=== PATIENT | male | born 1960 | race Caucasian/White ===

== ENCOUNTER 2016-11-16 13:20 | Emergency (ER) | payer OTHER ==
--- NOTE | 2016-11-16 14:23 | DIAGNOSTIC IMAGING REPORT ---
PROCEDURE: XR CHEST 2 VIEW INDICATION: SHORTNESS OF BREATH, initial encounter TECHNIQUE: PA and lateral view. COMPARISON: None. FINDINGS: Lungs are clear. Cardiovascular structures are normal. Bony thorax is unremarkable. IMPRESSION: 1. Negative chest.
--- NOTE | 2016-11-16 15:27 | ED ORDER SUMMARY ---
..... Patient: ODESSA SIMMONS OrderSheet [facility] VisitID: [id number] [address] [place] [address] 55y, M Registration Date/Time: 11/16/2016 ORDER SHEET Weight: 65.7 kg (stated) Allergies: None GENERAL ORDERS: UA-Culture if indicated Urgent (13:11/16/2016 PHutchinson DO) (Ack 13:37 LTapper) (15:30 ASchmuck) Amylase Urgent (13:11/16/2016 PHutchinson DO) (Ack 13:37 LTapper) (13:46 ASchmuck) Lipase Urgent (:11/16/2016 PHutchinson DO) (Ack 13:37 LTapper) (13:46 ASchmuck) Cardiac Panel Stat (:11/16/2016 PHutchinson DO) (Ack 13:37 LTapper) (13:46 ASchmuck) NPO (13:11/16/2016 PHutchinson DO) (13:29 ASchmuck) Rapid Influenza Screen (Nasal Pharyngeal) (assembler steam and gas turbine swab) Urgent (13:38 11/16/2016 PHutchinson DO) (Ack 13:44 LTapper) (13:46 ASchmuck) Chest 2V (possible history of mesothelioma) Urgent (14:01 11/16/2016 PHutchinson DO) (Ack 14:04 LTapper) (14:39 ASchmuck) MEDICATION ORDERS: IV FLUIDS: IV NS : initial bolus 1000 mL (1000 mL/hr), then 1000 mL/hr for X2 (NOW) (13:11/16/2016 PHutchinson DO) (Ack 13:33 ASchmuck) (13:46 ASchmuck) Zofran IV 4 mg (NOW) (13:11/16/2016 PHutchinson DO) (Ack 13:33 ASchmuck) (13:47 ASchmuck) Dilaudid IV 1 mg (HIGH ALERT MEDICATION, NOW) (13:11/16/2016 PHutchinson DO) (Ack 13:33 ASchmuck) (13:47 ASchmuck) Protonix IVP 40mg 40 mg (Mix in NS 10ml over 2min) (13:42 11/16/2016 Vahid CALDERA) (Ack 13:47 ASchmuck) (13:52 ASchmuck) Zofran IV 4 mg (NOW) (15:28 11/16/2016 Vahid CALDERA) (Ack 15:30 ASchmuck) (15:34 ASchmuck) ORDER SHEET NOTES: [Electronically signed by Anusha Colindres (15:49 11/16/2016)] [Electronically signed by Sam Pardo DO (23:01 11/16/2016)] [Electronically locked/signed by Anusha Colindres (15:49 11/16/2016)]
--- NOTE | 2016-11-16 15:27 | ED CLINICAL REPORT ---
Clinical Report - Physicians/Mid Levels [facility] [address] [place] [address] 11/16/2016 13:27 Patient: ODESSA SIMMONS Time Seen: 13:22. Arrived- By ambulance. Historian- patient and EMS personnel. HISTORY OF PRESENT ILLNESS Chief Complaint: NAUSEA, VOMITING and ABDOMINAL PAIN. At its maximum, severity described as moderate. When seen in the E.D., severity described as moderate. Modifying factors- worsened by movement and food. Relieved by rest. This started about 1 week ago and is still present. It was gradual in onset and has been waxing/waning. No headache. He has had fatigue, muscle aches and generalized weakness. Similar symptoms previously: Recent medical care: Not recently seen/assessed. REVIEW OF SYSTEMS No fever, sore throat, sinus drainage, difficulty breathing or chest pain. No bloody stools, difficulty with urination, headache or blackouts. He has had nasal congestion, a cough, abdominal pain. The pain is described as located in the left side of the abdomen, nausea and diarrhea. He has had black stools and back pain. He has had intermittent vomiting (not able to take his pain medications). No bilious emesis, blood-tinged emesis or frankly bloody emesis. He has had moderate difficulty with ambulation. It has been associated with weakness in both legs. All systems otherwise negative, except as recorded above. PAST HISTORY PCP: Dr Francis. Chronic obstructive pulmonary disease. Obstructive sleep apnea. Benign prostatic hypertrophy. Chronic back pain (with spinal stenosis; sees a pain specialist in [place] (Dr Marilynn Harkins) every 28 days - flies to [place] every 28 days for pain Rx). History of cancer (mesothelioma). Surgeries: No history of previous surgery. Additional Surgeries: no known surgeries. Medications: Methadone HCl Oral (Tablet 10 mg). OxyCODONE HCl Oral 30 mg. Allergies: None. SOCIAL HISTORY Smoker- current status unknown. No alcohol use or drug use. FAMILY HISTORY Hypertension in first-degree relative (father). ADDITIONAL NOTES The nursing notes have been reviewed. PHYSICAL EXAM Vital Signs: 11/16/2016 13:19 BP: 111/73. HR: 98. RR: 14. O2 saturation: 96%. Temp: 98.9 F. Appearance: Alert. Patient in moderate distress. Eyes: Eyes normal inspection. No scleral icterus or pale conjunctivae. ENT: Mildly dry mucous membranes present. No pharyngeal erythema or tonsillar exudate. Neck: Normal inspection. Neck supple. CVS: Normal heart rate and rhythm. Heart sounds normal. Pulses normal. Respiratory: No respiratory distress. Breath sounds normal. Abdomen: No visible injury. Moderate tenderness diffusely and in the upper abdomen. No mass. No rebound tenderness or guarding. Back: Normal inspection. Rectal: Rectal exam normal. Stool heme negative; hemoccult water quality manager check passed. (POC test reference range: negative). Skin: Skin warm and dry. Normal skin color. Normal skin turgor. Extremities: Extremities exhibit normal ROM. No calf tenderness. No lower extremity edema. Neuro: Oriented X 3. No motor deficit. No sensory deficit. LABS, X-RAYS, AND EKG Chest X-ray: No acute disease. Normal lung markings present. Normal heart size. Mediastinum normal. Great vessels normal. No infiltrate. Views: PA and lateral. Technique: good. The X-rays were interpreted contemporaneously by me. Laboratory Tests: CBC w Diff: (PUMA: 11/16/2016 13:30) ( MsgRcvd 11/16/2016 13:48) Final results Test Result Flag Units (Reference) WHITE BLOOD COUNT 16.6 H K/uL (4.5-11.5) RED BLOOD COUNT 4.88 M/uL (4.50-5.90) HEMOGLOBIN 14.6 gm/dL (13.5-17.5) HEMATOCRIT 44.4 % (41.0-53.0) MEAN CELL VOLUME 91 fL (80-100) MEAN CORPUSCULAR HGB 30 pg (26-34) MEAN CORPUSCULAR HGB CONC 33 g/dL (31-37) RED CELL DISTRIBUTION WIDTH 12.6 % (11.6-14.8) PLATELET COUNT 205 K/uL (150-400) NEUTROPHIL % 83.4 H % (50-75) LYMPH % 10.9 L % (25-40) MONO % 5.0 % (3-14) EOSINOPHIL % 0 % (0-4) BASOPHIL % 0.7 % (0-2) CHEM 13 PANEL: (PUMA: 11/16/2016 13:30) ( [facility] [place] 11/16/2016 14:14) Final results Test Result Flag Units (Reference) GLUCOSE 121 H mg/dL (70-110) BUN 12 mg/dL (7-18) CREATININE 1.0 mg/dL (0.6-1.3) Estimated GFR >60 mL/min Estimated GFR- >60 mL/min Note: Persistent reduction over 3 months in eGFR<60 mL/min/1.73 m2 defines CKD. Patients with eGFR values>=60 mL/min/1.73 m2 may also have CKD if evidence ofpersistent proteinuria. Additional information may be foundat www.kidney.org. SODIUM 141 mmol/L (136-145) POTASSIUM 3.5 mmol/L (3.5-5.1) CHLORIDE 103 mmol/L (98-107) CARBON DIOXIDE 25 mmol/L (21-32) CALCIUM 9.1 mg/dL (8.5-10.1) TOTAL PROTEIN 8.3 H g/dL (6.4-8.2) ALBUMIN 3.6 g/dL (3.3-5.0) BILIRUBIN, TOTAL 0.5 mg/dL (0.0-1.0) ALKALINE PHOSPHATASE 83 U/L (46-116) AST (SGOT) 21 U/L (15-37) ALT (SGPT) 25 U/L (12-78) MAGNESIUM 2.0 mg/dL (1.8-2.4) LIPASE 127 U/L (73-393) AMYLASE 25 U/L (25-115) CPK 111 U/L (24-260) TROPONIN I <0.05 L ng/mL (0.00-1.5) TROPONIN REFERENCE RANGE:<0.1 NEGATIVE0.1-1.5 INDETERMINANT>1.5 POSITIVE Rapid Influenza Screen: (PUMA: 11/16/2016 13:30) ( [facility] [place]/16[place] 14:06) Final results SPECIMEN DESCRIPTION: AWAKE OVERNIGHT MONITOR SWAB Test Result Flag Units (Reference) RAPID INFLUENZA SCREEN DATE: 11/16/16 INFLUENZA A: NEGATIVE SCREEN FOR INFLUENZA A INFLUENZA B: NEGATIVE SCREEN FOR INFLUENZA B RAPID INFLUENZA NEGATIVE FOR "A" "B". . Pulse Oximetry: 11/16/2016 13:19 O2 saturation: 96%. (FIO2 - room air). Interpretation: normal. PROGRESS AND PROCEDURES Course of Care: Normal Saline 2 liters IVPB given. Zofran 4 mg + 4 mg IVP given. Protonix 40 mg IVP given. Dilaudid 1 mg IVP given. Nonspecific serum leukocytosis which in this setting is c/w demargination secondary to vomiting 15:23 11/16/16. Patient is stable. Physical exam findings are improved. Symptoms much better. 15:27 11/16/16. Minimal abdominal discomfort now. Pt has chronic back pain. Mild residual nausea. Benign abdominal exam now. Patient/family counseled. Old medical records ordered. (from [place] pain clinic - Dr Joy). Disposition: Discharged. Condition: stable and improved. CLINICAL IMPRESSION Diarrhea Vomiting with nausea and dehydration. Not intractable or bilious. Narcotic withdrawal Moderate leukocytosis. No lymphocytosis. INSTRUCTIONS Do not work for three days. Avoid alcohol and NSAIDS. Examples of NSAIDS include aspirin, ibuprofen (Advil) and naproxen (Aleve). Avoid fatty, fried/greasy, lactose-containing (such as milk, cheese and ice cream), salty and spicy foods. Drink plenty of fluids. Do not smoke. Seek medical help to quit smoking. (MANDATORY RECHECK IN 12 - 24 HOURS UNLESS BETTER). Warnings: Further evaluation is necessary in order to recheck abnormal lab, obtain test results, conduct further tests and assess the possibility of serious illness. It is very important to follow up with a physician. SEDATIVE MEDICATION: You were given sedative medication during your visit. Do not drive or operate dangerous machinery. CONTROLLED SUBSTANCE WARNINGS. GENERAL WARNINGS: Return or contact your physician immediately if your condition worsens or changes unexpectedly, if not improving as expected, or if other problems arise. Your Current Medications: CONTINUE TAKING THE FOLLOWING MEDICATIONS: Methadone HCl Oral : Tablet 10 mg. OxyCODONE HCl Oral : 30 mg. Prescription Medications: Zofran (orally disintegrating tablets) 4 mg: take 1-2 orally every 8 hours as needed for nausea and vomiting. Dispense ten (10). No refill. Substitution is permissible. Follow-up: Follow up with your doctor tomorrow. (Electronically signed by Sam Pardo DO 11/16/2016 23:01)
--- NOTE | 2016-11-16 15:27 | ED ORDER SUMMARY ---
..... Patient: ODESSA SIMMONS OrderSheet [facility] VisitID: [id number] [address] [place] [address] 55y, M Registration Date/Time: 11/16/2016 ORDER SHEET Weight: 65.7 kg (stated) Allergies: None GENERAL ORDERS: UA-Culture if indicated Urgent (13:11/16/2016 PHutchinson DO) (Ack 13:37 LTapper) (15:30 ASchmuck) Amylase Urgent (13:11/16/2016 PHutchinson DO) (Ack 13:37 LTapper) (13:46 ASchmuck) Lipase Urgent (:11/16/2016 PHutchinson DO) (Ack 13:37 LTapper) (13:46 ASchmuck) Cardiac Panel Stat (:11/16/2016 PHutchinson DO) (Ack 13:37 LTapper) (13:46 ASchmuck) NPO (13:11/16/2016 PHutchinson DO) (13:29 ASchmuck) Rapid Influenza Screen (Nasal Pharyngeal) (artificial breeding technician swab) Urgent (13:38 11/16/2016 PHutchinson DO) (Ack 13:44 LTapper) (13:46 ASchmuck) Chest 2V (possible history of mesothelioma) Urgent (14:01 11/16/2016 PHutchinson DO) (Ack 14:04 LTapper) (14:39 ASchmuck) MEDICATION ORDERS: IV FLUIDS: IV NS : initial bolus 1000 mL (1000 mL/hr), then 1000 mL/hr for X2 (NOW) (13:11/16/2016 PHutchinson DO) (Ack 13:33 ASchmuck) (13:46 ASchmuck) Zofran IV 4 mg (NOW) (13:11/16/2016 PHutchinson DO) (Ack 13:33 ASchmuck) (13:47 ASchmuck) Dilaudid IV 1 mg (HIGH ALERT MEDICATION, NOW) (13:11/16/2016 PHutchinson DO) (Ack 13:33 ASchmuck) (13:47 ASchmuck) Protonix IVP 40mg 40 mg (Mix in NS 10ml over 2min) (13:42 11/16/2016 Vahid CALDERA) (Ack 13:47 ASchmuck) (13:52 ASchmuck) Zofran IV 4 mg (NOW) (15:28 11/16/2016 Vahid CALDERA) (Ack 15:30 ASchmuck) (15:34 ASchmuck) ORDER SHEET NOTES: [Electronically signed by Anusha Colindres (15:49 11/16/2016)] [Electronically signed by Sam Pardo DO (23:01 11/16/2016)] [Electronically locked/signed by Anusha Colindres (15:49 11/16/2016)]
--- NOTE | 2016-11-16 15:27 | ED CLINICAL REPORT ---
Clinical Report - Physicians/Mid Levels [facility] [address] [place] [address] 11/16/2016 13:27 Patient: ODESSA SIMMONS Time Seen: 13:22. Arrived- By ambulance. Historian- patient and EMS personnel. HISTORY OF PRESENT ILLNESS Chief Complaint: NAUSEA, VOMITING and ABDOMINAL PAIN. At its maximum, severity described as moderate. When seen in the E.D., severity described as moderate. Modifying factors- worsened by movement and food. Relieved by rest. This started about 1 week ago and is still present. It was gradual in onset and has been waxing/waning. No headache. He has had fatigue, muscle aches and generalized weakness. Similar symptoms previously: Recent medical care: Not recently seen/assessed. REVIEW OF SYSTEMS No fever, sore throat, sinus drainage, difficulty breathing or chest pain. No bloody stools, difficulty with urination, headache or blackouts. He has had nasal congestion, a cough, abdominal pain. The pain is described as located in the left side of the abdomen, nausea and diarrhea. He has had black stools and back pain. He has had intermittent vomiting (not able to take his pain medications). No bilious emesis, blood-tinged emesis or frankly bloody emesis. He has had moderate difficulty with ambulation. It has been associated with weakness in both legs. All systems otherwise negative, except as recorded above. PAST HISTORY PCP: Dr Francis. Chronic obstructive pulmonary disease. Obstructive sleep apnea. Benign prostatic hypertrophy. Chronic back pain (with spinal stenosis; sees a pain specialist in [place] (Dr Marilynn Harkins) every 28 days - flies to [place] every 28 days for pain Rx). History of cancer (mesothelioma). Surgeries: No history of previous surgery. Additional Surgeries: no known surgeries. Medications: Methadone HCl Oral (Tablet 10 mg). OxyCODONE HCl Oral 30 mg. Allergies: None. SOCIAL HISTORY Smoker- current status unknown. No alcohol use or drug use. FAMILY HISTORY Hypertension in first-degree relative (father). ADDITIONAL NOTES The nursing notes have been reviewed. PHYSICAL EXAM Vital Signs: 11/16/2016 13:19 BP: 111/73. HR: 98. RR: 14. O2 saturation: 96%. Temp: 98.9 F. Appearance: Alert. Patient in moderate distress. Eyes: Eyes normal inspection. No scleral icterus or pale conjunctivae. ENT: Mildly dry mucous membranes present. No pharyngeal erythema or tonsillar exudate. Neck: Normal inspection. Neck supple. CVS: Normal heart rate and rhythm. Heart sounds normal. Pulses normal. Respiratory: No respiratory distress. Breath sounds normal. Abdomen: No visible injury. Moderate tenderness diffusely and in the upper abdomen. No mass. No rebound tenderness or guarding. Back: Normal inspection. Rectal: Rectal exam normal. Stool heme negative; hemoccult quality assurance technician check passed. (POC test reference range: negative). Skin: Skin warm and dry. Normal skin color. Normal skin turgor. Extremities: Extremities exhibit normal ROM. No calf tenderness. No lower extremity edema. Neuro: Oriented X 3. No motor deficit. No sensory deficit. LABS, X-RAYS, AND EKG Chest X-ray: No acute disease. Normal lung markings present. Normal heart size. Mediastinum normal. Great vessels normal. No infiltrate. Views: PA and lateral. Technique: good. The X-rays were interpreted contemporaneously by me. Laboratory Tests: CBC w Diff: (PUMA: 11/16/2016 13:30) ( MsgRcvd 11/16/2016 13:48) Final results Test Result Flag Units (Reference) WHITE BLOOD COUNT 16.6 H K/uL (4.5-11.5) RED BLOOD COUNT 4.88 M/uL (4.50-5.90) HEMOGLOBIN 14.6 gm/dL (13.5-17.5) HEMATOCRIT 44.4 % (41.0-53.0) MEAN CELL VOLUME 91 fL (80-100) MEAN CORPUSCULAR HGB 30 pg (26-34) MEAN CORPUSCULAR HGB CONC 33 g/dL (31-37) RED CELL DISTRIBUTION WIDTH 12.6 % (11.6-14.8) PLATELET COUNT 205 K/uL (150-400) NEUTROPHIL % 83.4 H % (50-75) LYMPH % 10.9 L % (25-40) MONO % 5.0 % (3-14) EOSINOPHIL % 0 % (0-4) BASOPHIL % 0.7 % (0-2) CHEM 13 PANEL: (PUMA: 11/16/2016 13:30) ( [facility] [place]/16/2016 14:14) Final results Test Result Flag Units (Reference) GLUCOSE 121 H mg/dL (70-110) BUN 12 mg/dL (7-18) CREATININE 1.0 mg/dL (0.6-1.3) Estimated GFR >60 mL/min Estimated GFR- >60 mL/min Note: Persistent reduction over 3 months in eGFR<60 mL/min/1.73 m2 defines CKD. Patients with eGFR values>=60 mL/min/1.73 m2 may also have CKD if evidence ofpersistent proteinuria. Additional information may be foundat www.[email or web address].org. SODIUM 141 mmol/L (136-145) POTASSIUM 3.5 mmol/L (3.5-5.1) CHLORIDE 103 mmol/L (98-107) CARBON DIOXIDE 25 mmol/L (21-32) CALCIUM 9.1 mg/dL (8.5-10.1) TOTAL PROTEIN 8.3 H g/dL (6.4-8.2) ALBUMIN 3.6 g/dL (3.3-5.0) BILIRUBIN, TOTAL 0.5 mg/dL (0.0-1.0) ALKALINE PHOSPHATASE 83 U/L (46-116) AST (SGOT) 21 U/L (15-37) ALT (SGPT) 25 U/L (12-78) MAGNESIUM 2.0 mg/dL (1.8-2.4) LIPASE 127 U/L (73-393) AMYLASE 25 U/L (25-115) CPK 111 U/L (24-260) TROPONIN I <0.05 L ng/mL (0.00-1.5) TROPONIN REFERENCE RANGE:<0.1 NEGATIVE0.1-1.5 INDETERMINANT>1.5 POSITIVE Rapid Influenza Screen: (PUMA: 11/16/2016 13:30) ( [facility] [place]16[facility] 14:06) Final results SPECIMEN DESCRIPTION: BIOMETRICS TECHNICIAN SWAB Test Result Flag Units (Reference) RAPID INFLUENZA SCREEN DATE: 11/16/16 INFLUENZA A: NEGATIVE SCREEN FOR INFLUENZA A INFLUENZA B: NEGATIVE SCREEN FOR INFLUENZA B RAPID INFLUENZA NEGATIVE FOR "A" "B". . Pulse Oximetry: 11/16/2016 13:19 O2 saturation: 96%. (FIO2 - room air). Interpretation: normal. PROGRESS AND PROCEDURES Course of Care: Normal Saline 2 liters IVPB given. Zofran 4 mg + 4 mg IVP given. Protonix 40 mg IVP given. Dilaudid 1 mg IVP given. Nonspecific serum leukocytosis which in this setting is c/w demargination secondary to vomiting 15:23 11/16/16. Patient is stable. Physical exam findings are improved. Symptoms much better. 15:27 11/16/16. Minimal abdominal discomfort now. Pt has chronic back pain. Mild residual nausea. Benign abdominal exam now. Patient/family counseled. Old medical records ordered. (from [place] pain clinic - Dr Joy). Disposition: Discharged. Condition: stable and improved. CLINICAL IMPRESSION Diarrhea Vomiting with nausea and dehydration. Not intractable or bilious. Narcotic withdrawal Moderate leukocytosis. No lymphocytosis. INSTRUCTIONS Do not work for three days. Avoid alcohol and NSAIDS. Examples of NSAIDS include aspirin, ibuprofen (Advil) and naproxen (Aleve). Avoid fatty, fried/greasy, lactose-containing (such as milk, cheese and ice cream), salty and spicy foods. Drink plenty of fluids. Do not smoke. Seek medical help to quit smoking. (MANDATORY RECHECK IN 12 - 24 HOURS UNLESS BETTER). Warnings: Further evaluation is necessary in order to recheck abnormal lab, obtain test results, conduct further tests and assess the possibility of serious illness. It is very important to follow up with a physician. SEDATIVE MEDICATION: You were given sedative medication during your visit. Do not drive or operate dangerous machinery. CONTROLLED SUBSTANCE WARNINGS. GENERAL WARNINGS: Return or contact your physician immediately if your condition worsens or changes unexpectedly, if not improving as expected, or if other problems arise. Your Current Medications: CONTINUE TAKING THE FOLLOWING MEDICATIONS: Methadone HCl Oral : Tablet 10 mg. OxyCODONE HCl Oral : 30 mg. Prescription Medications: Zofran (orally disintegrating tablets) 4 mg: take 1-2 orally every 8 hours as needed for nausea and vomiting. Dispense ten (10). No refill. Substitution is permissible. Follow-up: Follow up with your doctor tomorrow. (Electronically signed by Sam Pardo DO 11/16/2016 23:01)
--- NOTE | 2016-11-16 15:27 | ED NURSING NOTES ---
Clinical Report - Nurses [facility] [address] [place] [address] 11/16/2016 13:27 [id number] Triage time 13:20 Nov 16 2016. Acuity: LEVEL 3. Chief Complaint: BODY ACHES and (N/V/D). 13:26 11/16/16. Alert. No acute distress. SEPSIS SCREEN: Sepsis Screen. Negative (no infection suspected/documented). WILMER COMA SCORE: [place] Coma Scale: 15- eyes open spontaneously (4); best verbal response- oriented x 4 (5); best motor response- obeys commands (6). --13:26 Anusha Colindres 13:19 11/16/16. BP: 111/73. HR: 98. RR: 14. O2 saturation: 96% on room air. Temp: 98.9 F. Pain level now 8/10. --13:26 Anusha Colindres 13:26 11/16/16. --13:27 Anusha Colindres. Weight: 65.7 kg stated. Height/Length: 70 inches Per Patient. BMI: 20.8. --13:25 Anusha Colindres. Medications OxyCODONE HCl Oral 30 mg. --13:22 Anusha Colindres Methadone HCl Oral (Tablet 10 mg). --13:24 Anusha Colindres The following entry was struck and corrected by Anusha Colindres, 13:24 (11/16/16) Reason for correction - other(correction). <<STRICKEN ENTRY-- OxyCODONE HCl Oral. --13:22 Anusha Colindres --END STRIKE>>. Medication/allergy information source: the patient. --13:26 Anusha Colindres. Allergies None. --13:23 Anusha Colindres. History Arrived by EMS. Historian: patient. Accompanied by (EMS). Primary physician ([place] (Unsure of spelling)). Onset. (About a week ago). ( Pt c/o abd pain that is on the left side. Hasn't been able to take pain medications d/t vomiting. Pt reports cough). The patient has had chest congestion, fatigue, abdominal pain, vomiting and diarrhea. No headache. No known contact with a sick individual. Treatment [employer]: See EMS report. EMS treatment [employer] verbally communicated. BP: 122/82. HR: 90. O2 saturation: 98 % room air. ( Past week-Nausea, vomiting, diarrhea. Hasn't been able to eat since Sunday. Methadone and oxycodone for pain. No allergies.). PAST MEDICAL HX: Pneumonia. Asthma. Chronic obstructive pulmonary disease. Cancer. No history of diabetes mellitus. No history of immunocompromise. Immunizations: up-to-date and seasonal influenza. SOCIAL HX: Current some days smoker. No alcohol use or drug use. No recent travel. FALL RISK ASSESSMENT: Fall risk assessment completed. No fall risk identified. NUTRITIONAL RISK ASSESSMENT: The nutritional risk assessment revealed no deficiencies. FUNCTIONAL ASSESSMENT: Functional assessment: no impairments noted. LEARNING NEEDS ASSESSMENT: The learning needs assessment revealed no barriers. SKIN INTEGRITY ASSESSMENT: Skin integrity risk assessment completed. No skin integrity risk identified. --13:26 Anusha Colindres. Assessment The patient states feels the same. --13:27 Anusha Colindres. Interventions ID band on patient. --13:26 Anusha Colindres. PHYSICAL ASSESSMENT 13:27 11/16/16. To room via stretcher. Patient gowned. GENERAL / NEURO / PSYCH: Alert. Oriented X 4. Appears in no acute distress. HEENT: Pupils equal, round and reactive to light. Mucous membranes are pink. RESPIRATORY: Respirations not labored. CVS: Capillary refill less than 2 seconds. Pulses within normal limits. GI / : The patient has diarrhea. Abdomen soft. Abdominal tenderness in the left upper quadrant and left side of the abdomen. SKIN: Skin intact. Skin is warm and dry. Normal skin turgor. --13:27 Anusha Colindres. NURSING PROGRESS NOTES 13:28 11/16/16. The plan of care for this patient has been created. Pulse oximeter applied. Patient gowned. Head of bed elevated. Reassurance given. Two patient identifiers checked. Call light placed in reach. Side rails up x 1. Bed placed in lowest position. Brakes of bed on. Patient ready for evaluation- chart flagged and ED physician notified. ( Warm blanket provided.). --13:28 Anusha Colindres 13:28 11/16/16. Patient ID band checked for patient name and birthdate: patient confirmed. Flu swab obtained by RN via nasal pharyngeal swab. Labeled in the presence of the patient and sent to lab (Done by GABBY Yu). --13:28 Anusha Colindres 13:29 11/16/2016 Site #1 started via IV in the right antecubital space with an 20g angiocath, with aseptic technique and good blood return; one attempt. Blood drawn: rainbow set. Labeled in the presence of the patient and sent to the lab. Saline lock flushed with 10 mL saline (Done by GABBY Mendiola). --13:29 Anusha Colindres 13:36 11/16/2016 Started bag #1 1000 mL IV Fluids IV NS (Saline); at 1000 mL/hr over 1 hour(s) via site #1 via IV pump. Allergies verified and confirmed 5 rights. IV patency established. IV site checked: no pain, redness, or swelling. IV flushed thoroughly pre- and post-medication administration. --13:46 Anusha Colindres 13:40 11/16/2016 Zofran (Ondansetron HCl) IVP 4 mg given over 1 minute(s) via site #1. Allergies verified and confirmed 5 rights. IV patency established. IV site checked: no pain, redness, or swelling. IV flushed thoroughly pre- and post-medication administration. IVP given by RN. --13:47 Anusha Colindres 13:42 11/16/2016 Dilaudid (HYDROmorphone HCl PF) IVP 1 mg given over 30 second(s) via site #1. Allergies verified, confirmed 5 rights and sedative warning given to the patient. IV patency established. IV site checked: no pain, redness, or swelling. IV flushed thoroughly pre- and post-medication administration. IVP given by RN. --13:47 Anusha Colindres 13:52 11/16/2016 PROTONIX (Pantoprazole Sodium) IVP 40 mg given over 3 minute(s) via site #1. Allergies verified and confirmed 5 rights. IV patency established. IV site checked: no pain, redness, or swelling. IV flushed thoroughly pre- and post-medication administration. IVP given by RN. --13:52 Anusha Colindres 13:53 11/16/16. ( Pt aware of need for urine sample.). --13:53 Anusha Colindres 14:08 11/16/16. Patient transported to radiology by stretcher with tech. (14:08 Nov 16 2016). --14:08 Anusha Colindres 14:17 11/16/16. BP: 121/74. HR: 61. RR: 16. O2 saturation: 100% on room air. Pain level now: 12/22. --14:18 Anusha Colindres 14:40 11/16/2016 IV Fluids IV NS Bag Change: bag #1 infused. Total amount infused: 1000. STARTED bag #2 (1000 mL) at 1000 mL/hr via IV pump. Confirmed 5 rights. IV patency established. IV site checked: no pain, redness, or swelling. IV flushed thoroughly. --14:40 Anusha Colindres 14:41 11/16/16. ( Lights dimmed, additional warm blankets provided. Patient states that pain is improved since medication.). --14:41 Anusha Colindres 14:41 11/16/16. ( Reminded of need for urine sample. Patient verbalized understanding.). --14:41 Anusha Colindres 15:34 11/16/2016 Zofran (Ondansetron HCl) IVP 4 mg given over 1 minute(s) via site #1. Allergies verified and confirmed 5 rights. IV patency established. IV site checked: no pain, redness, or swelling. IV flushed thoroughly pre- and post-medication administration. IVP given by RN. --15:34 Anusha Colindres 15:44 11/16/2016 Site #1 removed upon discharge. Catheter intact. Pressure dressing applied. --15:49 Anusha Colindres 15:44 11/16/2016 IV Fluids IV NS Discontinued: bag #2 infused upon discharge. Total amount infused: 1000 mL. IV patency established. IV site checked: no pain, redness, or swelling. IV flushed thoroughly. --15:49 Anusha Colindres. DISPOSITION / DISCHARGE 15:36 11/16/16. Condition at departure: improved. The goals identified in the patient's plan of care were met. FALL RISK ASSESSMENT: Fall risk assessment completed. No fall risk identified. --15:36 Anusha Colindres 15:34 11/16/16. BP: 100/59. HR: 62. RR: 16. O2 saturation: 100% on room air. Temp: 98.2 F (oral). Pain level now: 02/21. --15:36 Anusha Colindres 15:44 11/16/16. Departure time: 15:44 Nov 16 2016. No learning barriers present. Discharge instructions provided and reviewed with the patient. Reviewed warnings (Warnings listed in dc paperwork provided to patient. Patient verbalized understanding of importance of follow up appointment.). Reviewed medication(s) side effects, precautions, dosing and course information. Prescription(s) given to the patient (Zofran). Treatments reviewed. Reviewed referral to a primary care physician for followup. Patient verbalized understanding. Written instructions provided in [place]ian. The patient was discharged by the physician. He was discharged home and accompanied by family. He left the Emergency Department ambulatory and via private vehicle. Family member driving. --15:44 Anusha Colindres. Locked/Released at 11/16/2016 15:49 by Anusha Colindres,
--- NOTE | 2016-11-16 23:01 | ED MED RECONCILIATION SUMMARY ---
Patient: ODESSA SIMMONS Medication Reconciliation Report [facility] VisitID: [id number] [address] [place] [address] 55y, M Registration Date/Time: 11/16/2016 Weight: 65.7 kg Height/Length: 70 in. BMI: 20.8 ALLERGIES: None The patient's Home Medications are listed below: CONTINUE TAKING THE FOLLOWING MEDICATIONS: Methadone HCl Oral (10 mg) OxyCODONE HCl Oral 30 mg The source(s) of the original Home Medication information: patient The following Medications were given to the patient in the Emergency Department: IV NS IV Fluids bolus 0, then 1000 mL/hr, administered: 11/16/2016 1:36:00 PM Zofran [IVP] IVP 4 mg, administered: 11/16/2016 1:40:00 PM Dilaudid [IVP] IVP 1 mg, administered: 11/16/2016 1:42:00 PM PROTONIX [IVP] IVP 40 mg, administered: 11/16/2016 1:52:00 PM Zofran [IVP] IVP 4 mg, administered: 11/16/2016 3:34:00 PM The following Medications were prescribed to the patient: Zofran (orally disintegrating tablets) 4 mg: take 1-2 orally every 8 hours as needed for nausea and vomiting. Dispense ten (10). No refill. Substitution is permissible. -- Sam Pardo DO
--- NOTE | 2016-11-16 23:01 | ED MED RECONCILIATION SUMMARY ---
Patient: ODESSA SIMMONS Medication Reconciliation Report [facility] VisitID: [id number] [address] [place] [address] 55y, M Registration Date/Time: 11/16/2016 Weight: 65.7 kg Height/Length: 70 in. BMI: 20.8 ALLERGIES: None The patient's Home Medications are listed below: CONTINUE TAKING THE FOLLOWING MEDICATIONS: Methadone HCl Oral (10 mg) OxyCODONE HCl Oral 30 mg The source(s) of the original Home Medication information: patient The following Medications were given to the patient in the Emergency Department: IV NS IV Fluids bolus 0, then 1000 mL/hr, administered: 11/16/2016 1:36:00 PM Zofran [IVP] IVP 4 mg, administered: 11/16/2016 1:40:00 PM Dilaudid [IVP] IVP 1 mg, administered: 11/16/2016 1:42:00 PM PROTONIX [IVP] IVP 40 mg, administered: 11/16/2016 1:52:00 PM Zofran [IVP] IVP 4 mg, administered: 11/16/2016 3:34:00 PM The following Medications were prescribed to the patient: Zofran (orally disintegrating tablets) 4 mg: take 1-2 orally every 8 hours as needed for nausea and vomiting. Dispense ten (10). No refill. Substitution is permissible. -- Sam Pardo DO
--- NOTE | 2016-11-16 23:01 | ED DISCHARGE INSTRUCTIONS ---
Patient: ODESSA SIMMONS General Instructions [facility] VisitID: [id number] [place] [address] 55y, M Registration Date/Time: 11/16/2016 Diarrhea Vomiting with nausea and dehydration. Not intractable or bilious. Narcotic withdrawal Moderate leukocytosis. No lymphocytosis. INSTRUCTIONS Do not work for three days. Avoid alcohol and NSAIDS. Examples of NSAIDS include aspirin, ibuprofen (Advil) and naproxen (Aleve). Avoid fatty, fried/greasy, lactose-containing (such as milk, cheese and ice cream), salty and spicy foods. Drink plenty of fluids. Do not smoke. Seek medical help to quit smoking. (MANDATORY RECHECK IN 12 - 24 HOURS UNLESS BETTER). Warnings: Further evaluation is necessary in order to recheck abnormal lab, obtain test results, conduct further tests and assess the possibility of serious illness. It is very important to follow up with a physician. SEDATIVE MEDICATION: You were given sedative medication during your visit. Do not drive or operate dangerous machinery. CONTROLLED SUBSTANCE WARNINGS. GENERAL WARNINGS: Return or contact your physician immediately if your condition worsens or changes unexpectedly, if not improving as expected, or if other problems arise. Your Current Medications: CONTINUE TAKING THE FOLLOWING MEDICATIONS: Methadone HCl Oral : Tablet 10 mg. OxyCODONE HCl Oral : 30 mg. Prescription Medications: Zofran (orally disintegrating tablets) 4 mg: take 1-2 orally every 8 hours as needed for nausea and vomiting. Dispense ten (10). No refill. Substitution is permissible. Follow-up: Follow up with your doctor tomorrow. ADDITIONAL INFORMATION Diarrhea, Uncertain Cause (Adult, Report Pending) Diarrhea has several possible causes. Commonstomach fluis caused by a virus. Food poisoning, bacteria or parasites are other causes for diarrhea. Only diarrhea caused by bacteria or parasites requires treatment with an antibiotic. Diarrhea from a virus or food poisoning improves with simple home treatment. A stool sample is needed to make the diagnosis of an infection with bacteria or parasites. Up to three stool specimens may be required to diagnose This may take up to two days to get the result. It may be necessary to wait until the stool test is complete to make the diagnosis and select the best antibiotic to prescribe. Home Care: If symptoms are severe, rest at home for the next 24 hours or until you are feeling better. You may use acetaminophen (Tylenol) or ibuprofen (Motrin, Advil) to control fever, unless another medicine was prescribed. [NOTE: If you have chronic liver or kidney disease or ever had a stomach ulcer or GI bleeding, talk with your doctor before using these medicines.] (Aspirin should never be used in anyone under 18 years of age who is ill with a fever. It may cause severe liver damage.) Avoid tobacco, caffeine and alcohol, which may worsen your symptoms. If anti-diarrhea medicine was prescribed, take this only as directed. Sometimes anti-diarrhea medicine can make your condition worse if the cause is an infectious diarrhea. Therefore, anti-diarrhea medicine should not be taken for this condition unless advised by your doctor. During The First 12-24 Hours follow the diet below: BEVERAGES: Sport drinks like Gatorade, soft drinks without caffeine; libby elie, mineral water (plain or flavored), decaffeinated tea and coffee. SOUPS: Clear broth, consomm and bouillon DESSERTS: Plain gelatin (Jell-O), popsicles and fruit juice bars. During The Next 24 Hours you may add the following to the above: Hot cereal, plain toast, bread, rolls, crackers Plain noodles, rice, mashed potatoes, chicken noodle or rice soup Unsweetened canned fruit (avoid pineapple), bananas Limit fat intake to less than 15 grams per day by avoiding margarine, butter, oils, mayonnaise, sauces, gravies, fried foods, peanut butter, meat, poultry and fish. Limit fiber; avoid raw or cooked vegetables, fresh fruits (except bananas) and bran cereals. Limit caffeine and chocolate. No spices or seasonings except salt. During The Next 24 Hours Gradually resume a normal diet, as you feel better and your symptoms lessen. Follow Up with your doctor or as advised if you are not improving over the next two days. If you were asked to bring a specimen from home, bring the sample on the day of collection. You may call in 2 days (or as directed) for the results. Get Prompt Medical Attention if any of the following occur: Increasing abdominal pain or constant lower right abdominal pain Continued vomiting (unable to keep liquids down) Frequent diarrhea (more than 5 times a day) Blood in vomit or stool (black or red color) Reduced oral intake Dark urine, reduced urine output Weakness, dizziness, fainting Drowsiness, confusion, stiff neck or seizure Fever of 100.4F (38C) oral or higher, not better with fever medication New rash Vomiting [6Yr-Adult] Vomiting is a common symptom that may be due to different causes. These include gastroenteritis ("stomach flu"), food poisoning and gastritis. There are other more serious causes of vomiting which may be hard to diagnose early in the illness. Therefore, it is important to watch for the warning signs listed below. The main danger from repeated vomiting is dehydration. This is due to excess loss of water and minerals from the body. When this occurs, body fluids must be replaced. Home Care: If symptoms are severe, rest at home for the next 24 hours. You may use acetaminophen (Tylenol) or ibuprofen (Motrin, Advil) to control fever, unless another medicine was prescribed. [NOTE : If you have chronic liver or kidney disease or ever had a stomach ulcer or GI bleeding, talk with your doctor before using these medicines.] (Aspirin should never be used in anyone under 18 years of age who is ill with a fever. It may cause severe liver damage.) Avoid tobacco and alcohol use, which may worsen your symptoms. If medicines for vomiting were prescribed, take as directed. Once vomiting stops, then follow these guidelines: During The First 12-24 Hours follow the diet below: FRUIT JUICES: Apple, grape juice, clear fruit drinks, and electrolyte replacement drinks. BEVERAGES: Soft drinks without caffeine; mineral water (plain or flavored), decaffeinated tea and coffee. SOUPS: Clear broth, consomm and bouillon DESSERTS: Plain gelatin, popsicles and fruit juice bars. As you feel better, you may add 6-8 ounces of yogurt per day. During The Next 24 Hours you may add the following to the above: Hot cereal, plain toast, bread, rolls, crackers Plain noodles, rice, mashed potatoes, chicken noodle or rice soup Unsweetened canned fruit (avoid pineapple), bananas Limit caffeine and chocolate. No spices or seasonings except salt. During The Next 24 Hours Gradually resume a normal diet, as you feel better and your symptoms lessen. Follow Up with your doctor as advised if you are not improving over the next 2-3 days. Get Prompt Medical Attention if any of the following occur: Constant right-sided lower abdominal pain or increasing general abdominal pain Continued vomiting (unable to keep liquids down) for 24 hours Frequent diarrhea (more than 5 times a day); blood (red or black color) or mucus in diarrhea Reduced urine output or extreme thirst Weakness, dizziness or fainting Unusually drowsy or confused Fever of 100.4F (38C) oral or higher, not better with fever medication Yellow color of the eyes or skin Clear Liquid Diet Clear liquids are any liquid that you can see through as well as those that are very easy to digest. This is used while the body is recovering from irritation or infection of the stomach or intestinal tract. It may also be used before special procedures or surgery. This diet is to be used no more than three days. You may include the following items. Adults Adults should drink a total of 23 quarts of liquid per day. It may be easier to drink small frequent servings rather than a few large ones. Liquids can include: Fruit juices.Strained orange juice or lemonade (no pulp), apple, grape and cranberry juice, clear fruit drinks, sports drinks Beverages.Sport drinks, sodas, mineral water (plain or flavored), tea, black coffee, liquid gelatin (add twice the recommended amount of water) Soups.Clear broth, consomm, bouillon Desserts.Plain gelatin, popsicles, fruit juice bars Children Over 2 years old The following liquids are acceptable for children over age 2: Fruit juices.Strained orange juice or lemonade (no pulp), apple, grape and cranberry juice, clear fruit drinks Beverages. Sports drinks, sodas, mineral water (plain or flavored), tea, liquid gelatin (add twice the recommended amount of water) Soups. Clear broth, consomm, bouillon Desserts. Plain gelatin, popsicles, fruit juice bars Children under 2 years old Oral rehydration fluids such are available at drug stores and most grocery stores without a prescription. How To Quit Smoking Smoking is one of the hardest habits to break. About half of all those who have ever smoked have been able to quit, and most of those (about 70%) who still smoke want to quit. Here are some of the best ways to stop smoking. Keep Trying: It takes most smokers about 8 tries before they are finally able to fully quit. So, the more often you try and fail, the better your chance of quitting the next time! So, don't give up! Go Cold Mead: Most ex-smokers quit cold turkey. Trying to cut back gradually doesn't seem to work as well, perhaps because it continues the smoking habit. Also, it is possible to fool yourself by inhaling more while smoking fewer cigarettes. This results in the same amount of nicotine in your body! Get Support: Support programs can make an important difference, especially for the heavy smoker. These groups offer lectures, methods to change your behavior and peer support. Call the free national Quitline for more information. 437-DQTI-IBE (245-839-5280). Low-cost or free programs are offered by many hospitals, local chapters of the [place] [employer] (641-813-5579) and the [place] [employer] (039-847-7991). Support at home is important too. Non-smokers can help by offering praise and encouragement. If the smoker fails to quit, encourage them to try again! Uqtk-Lte-Ajgkovg Medicines: For those who can't quit on their own, Nicotine Replacement Therapy (NRT) may make quitting much easier. Certain aids such as the nicotine patch, gum and lozenge are available without a prescription. However, it is best to use these under the guidance of your doctor. The skin patch provides a steady supply of nicotine to the body. Nicotine gum and lozenge gives temporary bursts of low levels of nicotine. Both methods take the edge off the craving for cigarettes. WARNING: If you feel symptoms of nicotine overdose, such as nausea, vomiting, dizziness, weakness, or fast heartbeat, stop using these and see your doctor. Prescription Medicines: After evaluating your smoking patterns and prior attempts at quitting, your doctor may offer a prescription medicine such as bupropion (Zyban, Wellbutrin), varenicline (Chantix, Champix), a niocotine inhaler or nasal spray. Each has its unique advantage and side effects which your doctor can review with you. Health Benefits Of Quitting: The benefits of quitting start right away and keep improving the longer you go without smokin minutes: blood pressure and pulse return to normal 8 hours: oxygen levels return to normal 2 days: ability to smell and taste begins to improve as damaged nerves start to regrow 2-3 weeks: circulation and lung function improves 1-9 months: decreased cough, congestion and shortness of breath; less tired 1 year: risk of heart attack decreases by half 5 years: risk of lung cancer decreases by half; risk of stroke becomes the same as a non-smoker For information about how to quit smoking, visit the following links: National Cancer [place] , Clearing the Air, Quit Smoking Today - an online booklet. http://www.smokefree.gov/pubs/clearing_the_air.pdf Smokefree.gov http://smokefree.gov/ QuitNet http://www.[employer] [employer]ent[employer]net.[place]/ Ondansetron Oral disintegrating tablet What is this medicine? ONDANSETRON (on RISA se lu) is used to treat nausea and vomiting caused by chemotherapy. It is also used to prevent or treat nausea and vomiting after surgery. How should I use this medicine? These tablets are made to dissolve in the mouth. Do not try to push the tablet through the foil backing. With dry hands, peel away the foil backing and gently remove the tablet. Place the tablet in the mouth and allow it to dissolve, then swallow. While you may take these tablets with water, it is not necessary to do so. Talk to your director of operations home health regarding the use of this medicine in children. Special care may be needed. What side effects may I notice from receiving this medicine? Side effects that you should report to your doctor or health post acute care nurse as soon as possible: allergic reactions like skin rash, itching or hives, swelling of the face, lips, or tongue breathing problems dizziness fast or irregular heartbeat feeling faint or lightheaded, falls fever and chills swelling of the hands and feet tightness in the chest Side effects that usually do not require medical attention (report to your doctor or health post acute care nurse if they continue or are bothersome): constipation or diarrhea headache What may interact with this medicine? Do not take this medicine with any of the following medications: -apomorphine -cisapride -dofetilide -dronedarone -pimozide -thioridazine -ziprasidone This medicine may also interact with the following medications: -carbamazepine -phenytoin -rifampicin -tramadol -other medicines that prolong the QT interval (cause an abnormal heart rhythm) What if I miss a dose? If you miss a dose, take it as soon as you can. If it is almost time for your next dose, take only that dose. Do not take double or extra doses. Where should I keep my medicine? Keep out of the reach of children. Store between 2 and 30 degrees C (36 and 86 degrees F). Throw away any unused medicine after the expiration date. What should I tell my health care provider before I take this medicine? They need to know if you have any of these conditions: heart disease history of irregular heartbeat liver disease low levels of magnesium or potassium in the blood an unusual or allergic reaction to ondansetron, granisetron, other medicines, foods, dyes, or preservatives or trying to get breast-feeding What should I watch for while using this medicine? Check with your doctor or health post acute care nurse as soon as you can if you have any sign of an allergic reaction. You have been given the following additional information: Diarrhea, Unk Cause (Adult) Report Pendg Vomiting (6Y-Adult) Diet, Clear Liquid Smoking Cessation Ondansetron Oral disintegrating tablet Do not work for three days. (Electronically signed by Sam Pardo DO 11/16/2016 23:01)
--- NOTE | 2016-11-16 23:01 | ED MAR SUMMARY ---
..... Medication Administration Record [facility] [address] [place] [address] Patient: ODESSA SIMMONS Visit ID: [id number] 55y, M Weight: 65.7 kg Height/Length: 70 in BMI: 20.8 ALLERGIES: None Start 13:36 11/16/2016 Anusha Colindres,, Stop 15:44 11/16/2016 Anusha Colindres, Medication Administered: IV NS (SALINE), Dose: IV Fluids over 1 hour(s), Rate: 1000 mL/hr, Dispensed: 1000 mL bag, Site: #1 right AC. Medication Ordered: IV NS : initial bolus 1000 mL (1000 mL/hr), then 1000 mL/hr for X2 (NOW). Given 13:40 11/16/2016 Anusha Colindres, Medication Administered: ZOFRAN [IVP] (ONDANSETRON HCL), Dose: 4 mg IVP over 1 minute(s), Site: #1 right AC. Medication Ordered: Zofran IV 4 mg (NOW). Given 13:42 11/16/2016 Anusha Colindres, Medication Administered: DILAUDID [IVP] (HYDROMORPHONE HCL PF), Dose: 1 mg IVP over 30 second(s), Site: #1 right AC. Medication Ordered: Dilaudid IV 1 mg (HIGH ALERT MEDICATION, NOW). Given 13:52 11/16/2016 Anusha Colindres, Medication Administered: PROTONIX [IVP] (PANTOPRAZOLE SODIUM), Dose: 40 mg IVP over 3 minute(s), Site: #1 right AC. Medication Ordered: Protonix IVP 40mg 40 mg (Mix in NS 10ml over 2min). Given 15:34 11/16/2016 Anusha Colindres, Medication Administered: ZOFRAN [IVP] (ONDANSETRON HCL), Dose: 4 mg IVP over 1 minute(s), Site: #1 right AC. Medication Ordered: Zofran IV 4 mg (NOW).
--- NOTE | 2016-11-16 23:01 | ED MAR SUMMARY ---
..... Medication Administration Record [facility] [address] [place] [address] Patient: ODESSA SIMMONS Visit ID: [id number] 55y, M Weight: 65.7 kg Height/Length: 70 in BMI: 20.8 ALLERGIES: None Start 13:36 11/16/2016 Anusha Colindres,, Stop 15:44 11/16/2016 Anusha Colindres, Medication Administered: IV NS (SALINE), Dose: IV Fluids over 1 hour(s), Rate: 1000 mL/hr, Dispensed: 1000 mL bag, Site: #1 right AC. Medication Ordered: IV NS : initial bolus 1000 mL (1000 mL/hr), then 1000 mL/hr for X2 (NOW). Given 13:40 11/16/2016 Anusha Colindres, Medication Administered: ZOFRAN [IVP] (ONDANSETRON HCL), Dose: 4 mg IVP over 1 minute(s), Site: #1 right AC. Medication Ordered: Zofran IV 4 mg (NOW). Given 13:42 11/16/2016 Anusha Colindres, Medication Administered: DILAUDID [IVP] (HYDROMORPHONE HCL PF), Dose: 1 mg IVP over 30 second(s), Site: #1 right AC. Medication Ordered: Dilaudid IV 1 mg (HIGH ALERT MEDICATION, NOW). Given 13:52 11/16/2016 Anusha Colindres, Medication Administered: PROTONIX [IVP] (PANTOPRAZOLE SODIUM), Dose: 40 mg IVP over 3 minute(s), Site: #1 right AC. Medication Ordered: Protonix IVP 40mg 40 mg (Mix in NS 10ml over 2min). Given 15:34 11/16/2016 Anusha Colindres, Medication Administered: ZOFRAN [IVP] (ONDANSETRON HCL), Dose: 4 mg IVP over 1 minute(s), Site: #1 right AC. Medication Ordered: Zofran IV 4 mg (NOW).
== END 2016-11-16 14:48 | disposition home or self-care (01) ==
LOC: ED SRH 13:20
DX: R11.2 Nausea with vomiting, unspecified (principal); E86.0 Dehydration; R19.7 Diarrhea, unspecified; F13.239 Sedative, hypnotic or anxiolytic dependence with withdrawal, unspecified; D72.829 Elevated white blood cell count, unspecified; Z79.891 Long term (current) use of opiate analgesic
CPT/HCPCS: 90004; 90100; 90616; 91400; 92235; 92530; 92610; 92720; 95059

== ENCOUNTER 2016-11-18 19:52 | Emergency (ER) | payer OTHER ==
--- NOTE | 2016-11-18 23:05 | DIAGNOSTIC IMAGING REPORT ---
PROCEDURE: CT ABD/PELVIS WITH CONTRAST CLINICAL INDICATION: VOMITING, initial encounter TECHNIQUE: 95 ml of Isovue 300 were injected intravenously and axial images were obtained of the entire abdomen and pelvis with sagittal and coronal reformations. COMPARISON: None. FINDINGS: ABDOMEN: Small left lower lobe alveolar opacities. There are some filling defects in the left lower lobe pulmonary vessels but it is unclear if these are in the pulmonary veins or pulmonary arteries. Heart size is normal. Dilation of the pancreatic duct (4 mm) but no evidence of obstructing lesion or inflammatory changes. Liver, gallbladder, spleen and adrenal glands are normal. Small bilateral renal cysts. Mild atherosclerosis of the aorta. PELVIS: Normal appendix. There is no pelvic mass, inflammatory changes or free fluid. Mild dextroscoliosis and degenerative changes of the spine. IMPRESSION: 1. Left lower lobe pneumonia 2. Left lower lobe pulmonary vessel apparent filling defects. Recommend CTA for confirmation. 3. Results discussed with Dr. Melissa All CT scans at this facility use dose modulation, iterative reconstruction, and/or weight-based dosing when appropriate to reduce radiation dose to as low as reasonably achievable.
--- NOTE | 2016-11-18 23:44 | DIAGNOSTIC IMAGING REPORT ---
PROCEDURE: CTA THORAX WITH CONTRAST INDICATION: POSSIBLE PE ON ABDOMINAL CT, initial encounter TECHNIQUE: 95 ml of Isovue 370 was injected intravenously and axial images were obtained of the entire thorax with 3D sagittal and coronal MIP reconstructions. COMPARISON: None. FINDINGS: No evidence of pulmonary emboli. Mild right upper and left lower lobe alveolar infiltrates with filling of some of the left lower lobe bronchi. Mild prominence of the mediastinal and left hilar lymph nodes. No effusion. No dissection or aneurysm. Coronary atherosclerosis. Heart size is normal. Bilateral renal cysts. Mild degenerative changes of the spine. IMPRESSION: 1. Mild right upper and left lower lobe infiltrates consistent with pneumonia 2. No evidence of pulmonary emboli 3. Results discussed with Dr. Melissa
--- NOTE | 2016-11-19 00:54 | ED NURSING NOTES ---
Clinical Report - Nurses [facility] [address] [place] [address] 11/18/2016 19:52 Patient: ODESSA SIMMONS TRIAGE Triage time 1999. Acuity: LEVEL 3. Chief Complaint: FEVER, COUGH and BODY ACHES and (was seen here thurs with neg. flu-- Pt states that he can't eat, can't sleep, has lost weight due to decreased intake and has general body aches). 20:00. --20:08 Vanessa Hooper R.N. 20:00 11/18/16. BP: 105/70. HR: 90. RR: 20. O2 saturation: 96% on room air. Temp: 98.5 F. Pain level now: 05/24. --20:08 Vanessa Hooper R.N. 21:15 11/18/16. --21:15 Gigi Moura R.N. Weight: 62.5 kg stated. Height/Length: 70 inches Per Patient. BMI: 19.8. --20:06 Vanessa Hooper R.N. Medications Methadone HCl Oral (Tablet 10 mg). OxyCODONE HCl Oral 30 mg. --07:20 Gigi Moura R.N. Allergies None. --07:20 Gigi oMura R.N. History Arrived by private vehicle. Historian: patient. Unaccompanied. Primary physician (iona). The patient has had chest congestion and fatigue. He has had abdominal pain (left sided abd pain). He has had vomiting (TNTC). He has had diarrhea (Sun- ). No headache. PAST MEDICAL HX: ( Lung cancer). SOCIAL HX: Smoker- current status unknown (hasn't for last week, usually 1ppd). No alcohol use or drug use. --20:08 Vanessa Hooper R.N. ( Pt back for revisit). --21:15 Gigi Moura R.N. PROBLEMS: Vomiting. Diarrhea. Narcotic Withdrawal. Obstructive Sleep Apnea. Benign Prostatic Hypertrophy. Leukocytosis. Chronic Back Pain. COPD - Chronic Obstructive Pulmonary Disease. Asthma. Pneumonia. --20:05 Vanessa Hooper R.N. The following entry was modified by Marilee Melissa MD, 21:47 Reason - duplicate <<STRICKEN ENTRY-- Cancer. --13:23 Marilee Melissa MD --END STRIKE>>. ADDITIONAL SURGERIES: None. --20:05 Vanessa Hooper R.N. Interventions ID band on patient. To treatment room. --20:08 Vanessa Hooper R.N. NURSING PROGRESS NOTES 20:10 11/18/2016 Zofran ODT (Ondansetron) PO Oral Disintegrating Tablets 4 mg given. Allergies verified and confirmed 5 rights. --20:12 Vanessa Hooper R.N. 21:08 11/18/16. BP: 107/66. HR: 93. RR: 17. O2 saturation: 95% on room air. Temp: 98.6 F (oral). --21:10 Gigi Siegel R.N. 21:10. Head of bed elevated. Two patient identifiers checked. Call light placed in reach. Bed placed in lowest position. Brakes of bed on. Patient ready for evaluation- chart flagged. --21:10 Gigi Siegel R.N. 22:10 11/18/2016 Site #1 started via IV in the left antecubital space with an 20g angiocath, with aseptic technique and good blood return; one attempt. Blood drawn: rainbow set. Labeled in the presence of the patient and sent to the lab. Saline lock flushed with 10 mL saline. --22:14 Bety Sutherland R.N. 22:12 11/18/2016 Started bag #1 1000 mL IV Fluids IV NS (Saline); at 2000 mL/hr over 30 minute(s) via site #1. Allergies verified and confirmed 5 rights. IV patency established. IV site checked: no pain, redness, or swelling. IV flushed thoroughly pre- and post-medication administration. --22:15 Bety Sutherland R.N. 22:12 11/18/2016 Dilaudid (HYDROmorphone HCl PF) IVP 1 mg given over 1 minute(s) via site #1. Allergies verified, confirmed 5 rights and sedative warning given to the patient. IV patency established. IV site checked: no pain, redness, or swelling. IV flushed thoroughly pre- and post-medication administration. IVP given by RN. --22:15 Bety Sutherland R.N. 22:13 11/18/2016 PHENERGAN (Promethazine HCl) IVP 25 mg given over 5 minute(s) via site #1. Allergies verified and confirmed 5 rights. IV patency established. IV site checked: no pain, redness, or swelling. IV flushed thoroughly pre- and post-medication administration. IVP given by RN. --22:16 Bety Sutherland R.N. 22:25 11/18/16. Patient transported to [place] by stretcher with tech. --22:37 Gigi Moura R.N. 23:11 11/18/2016 Started bag #1 1000 mL IV Fluids IV NS (Saline); at 1000 mL/hr over 60 minute(s) via site #1. Allergies verified and confirmed 5 rights. IV patency established. IV site checked: no pain, redness, or swelling. IV flushed thoroughly pre- and post-medication administration. --23:16 Gigi Moura R.N. 23:12 11/18/2016 IV Fluids IV NS Discontinued: bag #1 infused. Total amount infused: 1000 mL. IV patency established. IV site checked: no pain, redness, or swelling. IV flushed thoroughly. --23:17 Gigi Moura R.N. <<STRICKEN ENTRY-- 23:14 11/18/2016 Started bag #1 1000 mL IV Fluids IV NS (Saline); at 1000 mL/hr over 60 minute(s) via site #1. Allergies verified and confirmed 5 rights. IV patency established. IV site checked: no pain, redness, or swelling. IV flushed thoroughly pre- and post-medication administration. --23:19 Gigi Moura R.N. --END STRIKE>> Correction. --23:19 Gigi Moura R.N. <<STRICKEN ENTRY-- 23:14 11/18/2016 Started bag #2 1000 IV Fluids IV NS (Saline); at 1000 mL/hr over 60 minute(s) via site #1. Allergies verified and confirmed 5 rights. IV patency established. IV site checked: no pain, redness, or swelling. IV flushed thoroughly pre- and post-medication administration. --23:19 Gigi Moura R.N. --END STRIKE>> Correction. --07:13 Gigi Moura R.N. 22:45. Patient returned from CT by stretcher with tech. --23:23 Gigi Moura R.N. 00:14 11/19/2016 Started bag #1 1000 mL IV Fluids IV NS (Saline); at 1000 mL/hr over 60 minute(s) via site #1. Allergies verified and confirmed 5 rights. IV patency established. IV site checked: no pain, redness, or swelling. IV flushed thoroughly pre- and post-medication administration. --07:13 Gigi Morua R.N. 00:30 11/19/2016 Started 2 gm of Rocephin (CefTRIAXone Sodium) IVPB in bag #1 100 mL; at 200 mL/hr over 40 minute(s) via site #1; Allergies verified and confirmed 5 rights. IV patency established. IV site checked: no pain, redness, or swelling. IV flushed thoroughly pre- and post-medication administration. --00:40 Gigi Moura R.N. <<STRICKEN ENTRY-- 01:03 11/19/2016 Rocephin IVPB Discontinued: bag #1 infused. Total amount infused: 100 mL. IV patency established. IV site checked: no pain, redness, or swelling. IV flushed thoroughly. (Rocephin 1 Gm IVPB's x 2 (2 Gms total)). --01:18 Gigi Moura R.N. --END STRIKE>> Correction. --01:19 Gigi Moura R.N. 01:10 11/19/2016 Rocephin IVPB Discontinued: bag #1 infused. Total amount infused: 100 mL. IV patency established. IV site checked: no pain, redness, or swelling. IV flushed thoroughly. (Rocephin 1 Gm IVPB's x 2 (2 Gms total)). --01:19 Gigi Moura R.N. 01:11 11/19/2016 Started 500 mg of Zithromax (Azithromycin) IVPB in bag #1 255 mL; at 255 mL/hr over 60 minute(s) via site #1 via IV pump. Allergies verified and confirmed 5 rights. IV patency established. IV site checked: no pain, redness, or swelling. IV flushed thoroughly pre- and post-medication administration. --01:16 Gigi Moura R.N. 01:12 11/19/2016 Started 500 mg of Zithromax (Azithromycin) IVPB in bag #1 250 mL; at 255 mL/hr over 60 minute(s) via site #1 via IV pump. Allergies verified and confirmed 5 rights. IV patency established. IV site checked: no pain, redness, or swelling. IV flushed thoroughly pre- and post-medication administration. --01:23 Gigi Moura R.N. 01:12. ( Duplicate charting of Azithromycin). --01:34 Gigi Moura R.N. 02:20 11/19/2016 Zithromax IVPB Discontinued: bag #1 infused. Total amount infused: 250 mL. IV patency established. IV site checked: no pain, redness, or swelling. IV flushed thoroughly. --07:18 Gigi Moura R.N. 02:30 11/19/2016 IV Fluids IV NS Discontinued: bag #2 infused. Total amount infused: 1000 mL. IV patency established. IV site checked: no pain, redness, or swelling. IV flushed thoroughly. --07:14 Gigi Moura R.N. 03:20 11/19/2016 Toradol IVP 30 mg given over 2 minute(s) via site #1. Allergies verified and confirmed 5 rights. IV patency established. IV site checked: no pain, redness, or swelling. IV flushed thoroughly pre- and post-medication administration. IVP given by RN. --07:16 Gigi Moura R.N. 03:22 11/19/2016 Dilaudid (HYDROmorphone HCl PF) IVP 1 mg given over 2 minute(s) via site #1. Allergies verified, confirmed 5 rights and sedative warning given to the patient. IV patency established. IV site checked: no pain, redness, or swelling. IV flushed thoroughly pre- and post-medication administration. IVP given by RN. --07:17 Gigi Moura R.N. 03:30 11/19/2016 Site #1 removed upon discharge. Catheter intact. Manual pressure, pressure dressing and bandage applied. --07:19 Gigi Moura R.N. Locked/Released at 11/19/2016 7:21 by Gigi Moura R.N.
--- NOTE | 2016-11-19 00:54 | ED CLINICAL REPORT ---
Clinical Report - Physicians/Mid Levels [facility] [address] [place] [address] 11/18/2016 19:52 Patient: ODESSA SIMMONS Time Seen: 21:00. Arrived- By private vehicle. Historian- patient. HISTORY OF PRESENT ILLNESS Chief Complaint: VOMITING. This started about 9 days ago and is still present. No recent travel. He has had nausea and vomiting. No diarrhea, black stools, bloody stools, constipation or flank pain. No history of possible bad food exposure, known contact with a sick individual or change in routine. He has had mild abdominal pain (PT states muscles are sore from vomiting.). The pain is described as generalized. Has not recently been camping or on antibiotics. The illness is described as moderate. (Pt was seen here 2 d/a for the same, with negative work-up. He states he never picked up his antiemetics, and has not been able to hold anything down for the past 2 days, including his chronic pain medication. Pt states that all of his other sx have resolved (diarrhea, subjective fever, dizziness), except for the nausea. Nausea is worst when he tries to take anything by mouth, he states.). Similar symptoms previously: Recent medical care: The patient was seen recently at this facility. REVIEW OF SYSTEMS No fever, muscle aches, difficulty with urination, dark urine or headache. No dizziness, sore throat, cough, chest pain or difficulty breathing. No excessive urination, skin rash, jaundice, fainting episodes or blurred vision. The patient has had back pain (chronically). All systems otherwise negative, except as recorded above. PAST HISTORY Problems: Lung Cancer. Narcotic Withdrawal. Obstructive Sleep Apnea. Benign Prostatic Hypertrophy. Chronic Back Pain. COPD - Chronic Obstructive Pulmonary Disease. Asthma. Additional Surgeries: None. SOCIAL HISTORY Smoker- current status unknown. No alcohol use or drug use. ADDITIONAL NOTES The nursing notes have been reviewed. PHYSICAL EXAM Vital Signs: 11/18/2016 20:00 BP: 105/70. HR: 90. RR: 20. O2 saturation: 96%. Temp: 98.5 F. Pain level now: 05/24. Have been reviewed. Appearance: Alert. Oriented X3. No acute distress. Eyes: Pupils equal, round and reactive to light. Eyes normal inspection. ENT: Nose normal. Neck: Normal inspection. CVS: Normal heart rate and rhythm. Heart sounds normal. Pulses normal. Respiratory: No respiratory distress. Breath sounds normal. Abdomen: Soft. Mild tenderness diffusely. No guarding or rebound tenderness. Back: Normal inspection. No CVA tenderness. Skin: Skin warm and dry. Normal skin color. No rash. Extremities: Extremities exhibit normal ROM. No lower extremity edema. Neuro: No motor deficit. No sensory deficit. (Grossly oriented and intact.). LABS, X-RAYS, AND EKG Abdominal CT: Normal aorta. Normal liver, spleen, pancreas, gallbladder and adrenals. Normal kidneys. Bladder normal. Appendix normal. No mass. No free fluid. No bony lesion. No diverticulitis. Possible PE and infiltrates are noted; CTA thorax recommended. Study type: abdomen and pelvis. Abdominal CT performed with IV contrast. The study was independently viewed by me, interpreted by the radiologist and contemporaneously by me and discussed with the radiologist. Prior studies were not available for comparison. Chest CT: Small, patchy infiltrate in the right lung and left lung. Consistent with pneumonia. Great vessels normal. Mediastinum normal. No fractures noted. No pulmonary embolism. Chest CT performed with contrast. The study was independently viewed by me, interpreted by the radiologist and contemporaneously by me and discussed with the radiologist. Prior studies were not available for comparison. Laboratory Tests: CBC w Diff: (PUMA: 11/18/2016 21:55) ( MsgRcvd 11/18/2016 22:11) Final results Test Result Flag Units (Reference) WHITE BLOOD COUNT 18.3 H K/uL (4.5-11.5) RED BLOOD COUNT 4.73 M/uL (4.50-5.90) HEMOGLOBIN 14.3 gm/dL (13.5-17.5) HEMATOCRIT 42.9 % (41.0-53.0) MEAN CELL VOLUME 91 fL (80-100) MEAN CORPUSCULAR HGB 30 pg (26-34) MEAN CORPUSCULAR HGB CONC 33 g/dL (31-37) RED CELL DISTRIBUTION WIDTH 12.1 % (11.6-14.8) PLATELET COUNT 209 K/uL (150-400) NEUTROPHIL % 78.6 H % (50-75) LYMPH % 13.2 L % (25-40) MONO % 7.4 % (3-14) EOSINOPHIL % 0.1 % (0-4) BASOPHIL % 0.7 % (0-2) CMP: (PUMA: 11/18/2016 21:55) ( MsgRcvd 11/18/2016 22:25) Final results Test Result Flag Units (Reference) GLUCOSE 102 mg/dL (70-110) BUN 8 mg/dL (7-18) CREATININE 0.9 mg/dL (0.6-1.3) Estimated GFR >60 mL/min Estimated GFR- >60 mL/min Note: Persistent reduction over 3 months in eGFR<60 mL/min/1.73 m2 defines CKD. Patients with eGFR values>=60 mL/min/1.73 m2 may also have CKD if evidence ofpersistent proteinuria. Additional information may be foundat www.kidney.org. SODIUM 141 mmol/L (136-145) POTASSIUM 3.7 mmol/L (3.5-5.1) CHLORIDE 104 mmol/L (98-107) CARBON DIOXIDE 28 mmol/L (21-32) CALCIUM 9.4 mg/dL (8.5-10.1) TOTAL PROTEIN 8.0 g/dL (6.4-8.2) ALBUMIN 3.2 L g/dL (3.3-5.0) BILIRUBIN, TOTAL 0.9 mg/dL (0.0-1.0) ALKALINE PHOSPHATASE 75 U/L (46-116) AST (SGOT) 22 U/L (15-37) ALT (SGPT) 33 U/L (12-78) . Pulse Oximetry: 11/18/2016 20:00 O2 saturation: 96%. (FIO2 - room air). Interpretation: normal. PROGRESS AND PROCEDURES Course of Care: Pt was given a liter of NS, as well as ODT Zofran and IV Phenergan and Dilaudid. Labs were rechecked, and compared with results from 2 days ago. Pt was found to have increased his WBC count to 18.3, and I did feel that he should have a CT scan of his abdomen to evaluate for potential causes of this and pt's ongoing sx. Scan was negative for abdominal pathology, but did show a possible PE and pneumonia, and radiologist recommended a CTA thorax. This was done, and showed pneumonia, but no PE. Pt was treated with antibiotics for this. Patient counseled in person regarding the patient's stable condition, test results, diagnosis and need for follow-up. Concerns were addressed. Old medical records reviewed. Disposition: Discharged. Condition: stable and improved. CLINICAL IMPRESSION Vomiting with nausea. Bacterial pneumonia. Vital signs recorded and reviewed; empiric antibiotics given in the ED. No hypoxemia, respiratory failure or sepsis. Narcotic withdrawal INSTRUCTIONS Drink plenty of fluids. (Your labs, overall, are about the same. Your white blood cell count is a little higher today than 2 days ago, and your CT scan did incidentally show a small area of pneumonia in each lung. You have been started on antibiotics today, but it is very important that you fill the prescription tomorrow and take your next dose on time. It is also very important that you get your nausea medicine prescription filled, as you need to hold down your antibiotics, and hold your pain medications down.). Warnings: GENERAL WARNINGS: Return or contact your physician immediately if your condition worsens or changes unexpectedly, if not improving as expected, or if other problems arise. Prescription Medications: Zithromax Z-Tunde: Take according to package instructions 2 orally today, followed by 1 orally every day for the next 4 days. Total course 5 days. No refills. Substitution is permissible. Follow-up: Follow up with your doctor in seven days if not better. Understanding of the discharge instructions verbalized by patient. (Electronically signed by Marilee Melissa MD 11/20/2016 17:57)
--- NOTE | 2016-11-19 00:54 | ED ORDER SUMMARY ---
..... Patient: ODESSA SIMMONS OrderSheet [facility] VisitID: [id number] [place] [address] 55y, M Registration Date/Time: 11/18/2016 ORDER SHEET Weight: 62.5 kg (stated) Allergies: None GENERAL ORDERS: CBC w Diff Urgent (21:41 11/18/2016 Alexandru KHANNA) (Ack 21:43 Ernst) (22:06 omanelli R.N.) CMP Urgent (21:41 11/18/2016 Alexandru KHANNA) (Ack 21:43 Ernst) (22:06 omanelli R.N.) CT Abd/Pel w Cont (No) (N/A) Urgent (22:13 11/18/2016 Alexandru KHANNA) (Ack 22:15 Ernst) (22:37 Eliezerelli R.N.) CTA Thorax w Cont (No) (N/A) Urgent (23:11/18/2016 Alexandru KHANNA) (Ack 23:08 Ernst) (23:30 RFay) MEDICATION ORDERS: Zofran ODT PO 4 mg (NOW) (20:09 11/18/2016 DDean R.N. per protocol) (20:12 DDean R.N.) Phenergan IV 25 mg (HIGH ALERT MEDICATION, NOW) (21:41 11/18/2016 Alexandru KHANNA) (22:16 EInderbitzen R.N.) IV FLUIDS: IV NS : initial bolus 1000 mL (1000 mL/hr), then none - (NOW) (21:41 11/18/2016 Alexandru KHANNA) (22:15 EInderbitzen R.N.) Dilaudid IV 1 mg (HIGH ALERT MEDICATION, NOW) (21:41 11/18/2016 Alexandru KHANNA) (22:15 EInderbitzen R.N.) IV NS : initial bolus 1000 mL (1000 mL/hr), then none - (NOW) (23:07 11/18/2016 Alexandru KHANNA) (23:16 omanserina R.N.) Rocephin IV 2 gm/50mL (NOW) (23:43 11/18/2016 Alexandru KHANNA) (0:40 Kameron Xavier.NJannie) Zithromax IV 500 mg/250 mL (NOW) (23:43 11/18/2016 Alexandru KHANNA) (1:16 Kameron Xavier.N.) Toradol IV 30 mg (NOW) (03:19 11/19/2016 Alexandru KHANNA) (7:16 Kameron Xavier.N.) Dilaudid IV 1 mg (HIGH ALERT MEDICATION, NOW) (03:19 11/19/2016 Alexandru KHANNA) (7:17 Kameron Xavier.N.) ORDER SHEET NOTES: [Electronically signed by Gigi Moura R.N. (07:21 11/19/2016)] [Electronically signed by Marilee Melissa MD (17:57 11/20/2016)] [Electronically locked/signed by Gigi Moura R.N. (07:21 11/19/2016)]
--- NOTE | 2016-11-19 00:54 | ED ORDER SUMMARY ---
..... Patient: ODESSA SIMMONS OrderSheet [facility] VisitID: [id number] [place] [address] 55y, M Registration Date/Time: 11/18/2016 ORDER SHEET Weight: 62.5 kg (stated) Allergies: None GENERAL ORDERS: CBC w Diff Urgent (21:41 11/18/2016 Alexandru KHANNA) (Ack 21:43 Ernst) (22:06 omanelli R.N.) CMP Urgent (21:41 11/18/2016 Alexandru KHANNA) (Ack 21:43 Ernst) (22:06 omanelli R.N.) CT Abd/Pel w Cont (No) (N/A) Urgent (22:13 11/18/2016 Alexandru KHANNA) (Ack 22:15 Ernst) (22:37 Eliezerelli R.N.) CTA Thorax w Cont (No) (N/A) Urgent (23:11/18/2016 Alexandru KHANNA) (Ack 23:08 Ernst) (23:30 RFay) MEDICATION ORDERS: Zofran ODT PO 4 mg (NOW) (20:09 11/18/2016 DDean R.N. per protocol) (20:12 DDean R.N.) Phenergan IV 25 mg (HIGH ALERT MEDICATION, NOW) (21:41 11/18/2016 Alexandru KHANNA) (22:16 EInderbitzen R.N.) IV FLUIDS: IV NS : initial bolus 1000 mL (1000 mL/hr), then none - (NOW) (21:41 11/18/2016 Alexandru KHANNA) (22:15 EInderbitzen R.N.) Dilaudid IV 1 mg (HIGH ALERT MEDICATION, NOW) (21:41 11/18/2016 Alexandru KHANNA) (22:15 EInderbitzen R.N.) IV NS : initial bolus 1000 mL (1000 mL/hr), then none - (NOW) (23:07 11/18/2016 Alexandru KHANNA) (23:16 omanserina R.N.) Rocephin IV 2 gm/50mL (NOW) (23:43 11/18/2016 Alexandru KHANNA) (0:40 Kameron Xavier.NJannie) Zithromax IV 500 mg/250 mL (NOW) (23:43 11/18/2016 Alexandru KHANNA) (1:16 Kameron Xavier.N.) Toradol IV 30 mg (NOW) (03:19 11/19/2016 Alexandru KHANNA) (7:16 Kameron Xavier.N.) Dilaudid IV 1 mg (HIGH ALERT MEDICATION, NOW) (03:19 11/19/2016 Alexandru KHANNA) (7:17 Kameron Xavier.N.) ORDER SHEET NOTES: [Electronically signed by Gigi Moura R.N. (07:21 11/19/2016)] [Electronically signed by Marilee Melissa MD (17:57 11/20/2016)] [Electronically locked/signed by Gigi Moura R.N. (07:21 11/19/2016)]
--- NOTE | 2016-11-20 17:57 | ED MED RECONCILIATION SUMMARY ---
Patient: ODESSA SIMMONS Medication Reconciliation Report [facility] VisitID: [id number] [address] [place] [address] 55y, M Registration Date/Time: 11/18/2016 Weight: 62.5 kg Height/Length: 70 in. BMI: 19.8 ALLERGIES: None The patient's Home Medications are listed below: THE FOLLOWING MEDICATIONS NEED TO BE RECONCILED: Methadone HCl Oral (10 mg) OxyCODONE HCl Oral 30 mg The source(s) of the original Home Medication information: Not obtained. The following Medications were given to the patient in the Emergency Department: Zofran ODT [PO] PO 4 mg, administered: 11/18/2016 8:10:00 PM IV NS IV Fluids bolus 0, then 2000 mL/hr, administered: 11/18/2016 10:12:00 PM Dilaudid [IVP] IVP 1 mg, administered: 11/18/2016 10:12:00 PM PHENERGAN [IVP] IVP 25 mg, administered: 11/18/2016 10:13:00 PM IV NS IV Fluids bolus 0, then 1000 mL/hr, administered: 11/18/2016 11:11:00 PM IV NS IV Fluids bolus 0, then 1000 mL/hr, administered: 11/19/2016 12:14:00 AM Rocephin [IVPB] IVPB bolus 0, then 2 gm 200 mL/hr, administered: 11/19/2016 12:30:00 AM Zithromax [IVPB] IVPB bolus 0, then 500 mg 255 mL/hr, administered: 11/19/2016 1:11:00 AM Zithromax [IVPB] IVPB bolus 0, then 500 mg 255 mL/hr, administered: 11/19/2016 1:12:00 AM Toradol [IVP] IVP 30 mg, administered: 11/19/2016 3:20:00 AM Dilaudid [IVP] IVP 1 mg, administered: 11/19/2016 3:22:00 AM The following Medications were prescribed to the patient: Zithromax Z-Tunde: Take according to package instructions 2 orally today, followed by 1 orally every day for the next 4 days. Total course 5 days. No refills. Substitution is permissible. -- Marilee Melissa MD
--- NOTE | 2016-11-20 17:57 | ED MED RECONCILIATION SUMMARY ---
Patient: ODESSA SIMMONS Medication Reconciliation Report [facility] VisitID: [id number] [address] [place] [address] 55y, M Registration Date/Time: 11/18/2016 Weight: 62.5 kg Height/Length: 70 in. BMI: 19.8 ALLERGIES: None The patient's Home Medications are listed below: THE FOLLOWING MEDICATIONS NEED TO BE RECONCILED: Methadone HCl Oral (10 mg) OxyCODONE HCl Oral 30 mg The source(s) of the original Home Medication information: Not obtained. The following Medications were given to the patient in the Emergency Department: Zofran ODT [PO] PO 4 mg, administered: 11/18/2016 8:10:00 PM IV NS IV Fluids bolus 0, then 2000 mL/hr, administered: 11/18/2016 10:12:00 PM Dilaudid [IVP] IVP 1 mg, administered: 11/18/2016 10:12:00 PM PHENERGAN [IVP] IVP 25 mg, administered: 11/18/2016 10:13:00 PM IV NS IV Fluids bolus 0, then 1000 mL/hr, administered: 11/18/2016 11:11:00 PM IV NS IV Fluids bolus 0, then 1000 mL/hr, administered: 11/19/2016 12:14:00 AM Rocephin [IVPB] IVPB bolus 0, then 2 gm 200 mL/hr, administered: 11/19/2016 12:30:00 AM Zithromax [IVPB] IVPB bolus 0, then 500 mg 255 mL/hr, administered: 11/19/2016 1:11:00 AM Zithromax [IVPB] IVPB bolus 0, then 500 mg 255 mL/hr, administered: 11/19/2016 1:12:00 AM Toradol [IVP] IVP 30 mg, administered: 11/19/2016 3:20:00 AM Dilaudid [IVP] IVP 1 mg, administered: 11/19/2016 3:22:00 AM The following Medications were prescribed to the patient: Zithromax Z-Tunde: Take according to package instructions 2 orally today, followed by 1 orally every day for the next 4 days. Total course 5 days. No refills. Substitution is permissible. -- Marilee Melissa MD
--- NOTE | 2016-11-20 17:57 | ED DISCHARGE INSTRUCTIONS ---
Patient: ODESSA SIMMONS General Instructions [facility] VisitID: [id number] [place] [address] 55y, M Registration Date/Time: 11/18/2016 Vomiting with nausea. Bacterial pneumonia. Vital signs recorded and reviewed; empiric antibiotics given in the ED. No hypoxemia, respiratory failure or sepsis. Narcotic withdrawal INSTRUCTIONS Drink plenty of fluids. (Your labs, overall, are about the same. Your white blood cell count is a little higher today than 2 days ago, and your CT scan did incidentally show a small area of pneumonia in each lung. You have been started on antibiotics today, but it is very important that you fill the prescription tomorrow and take your next dose on time. It is also very important that you get your nausea medicine prescription filled, as you need to hold down your antibiotics, and hold your pain medications down.). Warnings: GENERAL WARNINGS: Return or contact your physician immediately if your condition worsens or changes unexpectedly, if not improving as expected, or if other problems arise. Prescription Medications: Zithromax Z-Tunde: Take according to package instructions 2 orally today, followed by 1 orally every day for the next 4 days. Total course 5 days. No refills. Substitution is permissible. Follow-up: Follow up with your doctor in seven days if not better. Understanding of the discharge instructions verbalized by patient. ADDITIONAL INFORMATION Vomiting [6Yr-Adult] Vomiting is a common symptom that may be due to different causes. These include gastroenteritis ("stomach flu"), food poisoning and gastritis. There are other more serious causes of vomiting which may be hard to diagnose early in the illness. Therefore, it is important to watch for the warning signs listed below. The main danger from repeated vomiting is dehydration. This is due to excess loss of water and minerals from the body. When this occurs, body fluids must be replaced. Home Care: If symptoms are severe, rest at home for the next 24 hours. You may use acetaminophen (Tylenol) or ibuprofen (Motrin, Advil) to control fever, unless another medicine was prescribed. [NOTE : If you have chronic liver or kidney disease or ever had a stomach ulcer or GI bleeding, talk with your doctor before using these medicines.] (Aspirin should never be used in anyone under 18 years of age who is ill with a fever. It may cause severe liver damage.) Avoid tobacco and alcohol use, which may worsen your symptoms. If medicines for vomiting were prescribed, take as directed. Once vomiting stops, then follow these guidelines: During The First 12-24 Hours follow the diet below: FRUIT JUICES: Apple, grape juice, clear fruit drinks, and electrolyte replacement drinks. BEVERAGES: Soft drinks without caffeine; mineral water (plain or flavored), decaffeinated tea and coffee. SOUPS: Clear broth, consomm and bouillon DESSERTS: Plain gelatin, popsicles and fruit juice bars. As you feel better, you may add 6-8 ounces of yogurt per day. During The Next 24 Hours you may add the following to the above: Hot cereal, plain toast, bread, rolls, crackers Plain noodles, rice, mashed potatoes, chicken noodle or rice soup Unsweetened canned fruit (avoid pineapple), bananas Limit caffeine and chocolate. No spices or seasonings except salt. During The Next 24 Hours Gradually resume a normal diet, as you feel better and your symptoms lessen. Follow Up with your doctor as advised if you are not improving over the next 2-3 days. Get Prompt Medical Attention if any of the following occur: Constant right-sided lower abdominal pain or increasing general abdominal pain Continued vomiting (unable to keep liquids down) for 24 hours Frequent diarrhea (more than 5 times a day); blood (red or black color) or mucus in diarrhea Reduced urine output or extreme thirst Weakness, dizziness or fainting Unusually drowsy or confused Fever of 100.4F (38C) oral or higher, not better with fever medication Yellow color of the eyes or skin Pneumonia (Adult) Pneumonia is an infection deep within the lung, in the small air sacs (alveoli). It may be due to a virus or bacteria and is usually treated with an antibiotic. Severe cases require treatment in the hospital. Milder cases can be treated at home. Symptoms usually start to improve during the first2 days of treatment. Home Care: Rest at home for the first 23 days or until you feel stronger. When resuming activity, dont let yourself become overly tired. Avoid exposure to cigarette smoke (yours or others). You may use acetaminophen (Tylenol) or ibuprofen (Motrin, Advil) to control fever or pain, unless another medicine was prescribed. [NOTE: If you have chronic liver or kidney disease or ever had a stomach ulcer or GI bleeding, talk with your doctor before using these medicines.] (Aspirin should never be used in anyone under 18 years of age who is ill with a fever. It may cause severe liver damage.) Your appetite may be poor so a light diet is fine. Keep well hydrated by drinking 68 glasses of fluids per day (water, sport drinks such as Gatorade, sodas without caffeine, juices, tea, soup, etc.). This will help loosen secretions in the lung, making it easier for you to cough up the phlegm (sputum). If you also have heart or kidney disease, check with your doctor before you drink extra amounts of fluids. Finish all antibiotic medicine prescribed, even if you are feeling better after a few days. Follow Up with your doctor in the next 23 days (or as advised) to be sure you are responding properly to the medicine. [NOTE: If you are age 65 or older, or if you have chronic lung disease (asthma, emphysema or COPD), we recommendthe pneumococcal vaccination and a yearlyinfluenzavaccination(flu-shot) every . Ask your doctor about this.] Get Prompt Medical Attention if any of the following occur: Not getting better within the first 48 hours of treatment Increasing shortness of breath or rapid breathing (over 25 breaths/minute) Coughing up blood or increasing chest pain with breathing Fever of 100.4F (38C) oral or higher, not better with fever medication Increasing weakness, dizziness or fainting Increasing thirst or dry mouth Sinus pain, headache or a stiff neck Chest pain not caused by coughing You have been given the following additional information: Vomiting (6Y-Adult) Pneumonia (Adult) (Electronically signed by Marilee Melissa MD 11/20/2016 17:57)
--- NOTE | 2016-11-20 17:57 | ED MAR SUMMARY ---
..... Medication Administration Record [facility] [address] [place] [address] Patient: ODESSA SIMMONS Visit ID: [id number] 55y, M Weight: 62.5 kg Height/Length: 70 in BMI: 19.8 ALLERGIES: None Given 20:10 11/18/2016 Vanessa Hooper R.N. Medication Administered: ZOFRAN ODT [PO] (ONDANSETRON), Dose: 4 mg Oral Disintegrating Tablets PO. Medication Ordered: Zofran ODT PO 4 mg (NOW). Start 22:12 11/18/2016 Bety Sutherland R.N., Stop 23:12 11/18/2016 Gigi Moura R.N. Medication Administered: IV NS (SALINE), Dose: IV Fluids over 30 minute(s), Rate: 2000 mL/hr, Dispensed: 1000 mL bag, Site: #1 left AC. Medication Ordered: IV NS : initial bolus 1000 mL (1000 mL/hr), then none - (NOW). Given 22:12 11/18/2016 Bety Sutherland R.N. Medication Administered: DILAUDID [IVP] (HYDROMORPHONE HCL PF), Dose: 1 mg IVP over 1 minute(s), Site: #1 left AC. Medication Ordered: Dilaudid IV 1 mg (HIGH ALERT MEDICATION, NOW). Given 22:13 11/18/2016 Bety Sutherland R.N. Medication Administered: PHENERGAN [IVP] (PROMETHAZINE HCL), Dose: 25 mg IVP over 5 minute(s), Site: #1 left AC. Medication Ordered: Phenergan IV 25 mg (HIGH ALERT MEDICATION, NOW). Start 23:11 11/18/2016 Gigi Moura R.N. Medication Administered: IV NS (SALINE), Dose: IV Fluids over 60 minute(s), Rate: 1000 mL/hr, Dispensed: 1000 mL bag, Site: #1 left AC. Medication Ordered: IV NS : initial bolus 1000 mL (1000 mL/hr), then none - (NOW). Start 00:14 11/19/2016 Gigi Moura R.N., Stop 02:30 11/19/2016 Gigi Moura R.N. Medication Administered: IV NS (SALINE), Dose: IV Fluids over 60 minute(s), Rate: 1000 mL/hr, Dispensed: 1000 mL bag, Site: #1 left AC. Medication Ordered: IV NS : initial bolus 1000 mL (1000 mL/hr), then none - (NOW). Start 00:30 11/19/2016 Gigi Moura R.N., Stop 01:10 11/19/2016 Gigi Moura R.N. Medication Administered: ROCEPHIN [IVPB] (CEFTRIAXONE SODIUM), Dose: 2 gm IVPB over 40 minute(s), Rate: 200 mL/hr, Dispensed: 100 mL bag, Site: #1 left AC. Medication Ordered: Rocephin IV 2 gm/50mL (NOW). Start 01:11 11/19/2016 Gigi Moura R.N., Stop 02:20 11/19/2016 Gigi Moura R.N. Medication Administered: ZITHROMAX [IVPB] (AZITHROMYCIN), Dose: 500 mg IVPB over 60 minute(s), Rate: 255 mL/hr, Dispensed: 255 mL bag, Site: #1 left AC. Medication Ordered: Zithromax IV 500 mg/250 mL (NOW). Start 01:12 11/19/2016 Gigi Moura R.N. Medication Administered: ZITHROMAX [IVPB] (AZITHROMYCIN), Dose: 500 mg IVPB over 60 minute(s), Rate: 255 mL/hr, Dispensed: 250 mL bag, Site: #1 left AC. Medication Ordered: Zithromax IV 500 mg/250 mL (NOW). Given 03:20 11/19/2016 Gigi Moura R.N. Medication Administered: TORADOL [IVP], Dose: 30 mg IVP over 2 minute(s), Site: #1 left AC. Medication Ordered: Toradol IV 30 mg (NOW). Given 03:22 11/19/2016 Gigi Moura R.N. Medication Administered: DILAUDID [IVP] (HYDROMORPHONE HCL PF), Dose: 1 mg IVP over 2 minute(s), Site: #1 left AC. Medication Ordered: Dilaudid IV 1 mg (HIGH ALERT MEDICATION, NOW).
--- NOTE | 2016-11-20 17:57 | ED MAR SUMMARY ---
..... Medication Administration Record [facility] [address] [place] [address] Patient: ODESSA SIMMONS Visit ID: [id number] 55y, M Weight: 62.5 kg Height/Length: 70 in BMI: 19.8 ALLERGIES: None Given 20:10 11/18/2016 Vanessa Hooper R.N. Medication Administered: ZOFRAN ODT [PO] (ONDANSETRON), Dose: 4 mg Oral Disintegrating Tablets PO. Medication Ordered: Zofran ODT PO 4 mg (NOW). Start 22:12 11/18/2016 Bety Sutherland R.N., Stop 23:12 11/18/2016 Gigi Moura R.N. Medication Administered: IV NS (SALINE), Dose: IV Fluids over 30 minute(s), Rate: 2000 mL/hr, Dispensed: 1000 mL bag, Site: #1 left AC. Medication Ordered: IV NS : initial bolus 1000 mL (1000 mL/hr), then none - (NOW). Given 22:12 11/18/2016 Bety Sutherland R.N. Medication Administered: DILAUDID [IVP] (HYDROMORPHONE HCL PF), Dose: 1 mg IVP over 1 minute(s), Site: #1 left AC. Medication Ordered: Dilaudid IV 1 mg (HIGH ALERT MEDICATION, NOW). Given 22:13 11/18/2016 Bety Sutherland R.N. Medication Administered: PHENERGAN [IVP] (PROMETHAZINE HCL), Dose: 25 mg IVP over 5 minute(s), Site: #1 left AC. Medication Ordered: Phenergan IV 25 mg (HIGH ALERT MEDICATION, NOW). Start 23:11 11/18/2016 Gigi Moura R.N. Medication Administered: IV NS (SALINE), Dose: IV Fluids over 60 minute(s), Rate: 1000 mL/hr, Dispensed: 1000 mL bag, Site: #1 left AC. Medication Ordered: IV NS : initial bolus 1000 mL (1000 mL/hr), then none - (NOW). Start 00:14 11/19/2016 Gigi Moura R.N., Stop 02:30 11/19/2016 Gigi Moura R.N. Medication Administered: IV NS (SALINE), Dose: IV Fluids over 60 minute(s), Rate: 1000 mL/hr, Dispensed: 1000 mL bag, Site: #1 left AC. Medication Ordered: IV NS : initial bolus 1000 mL (1000 mL/hr), then none - (NOW). Start 00:30 11/19/2016 Gigi Moura R.N., Stop 01:10 11/19/2016 Gigi Moura R.N. Medication Administered: ROCEPHIN [IVPB] (CEFTRIAXONE SODIUM), Dose: 2 gm IVPB over 40 minute(s), Rate: 200 mL/hr, Dispensed: 100 mL bag, Site: #1 left AC. Medication Ordered: Rocephin IV 2 gm/50mL (NOW). Start 01:11 11/19/2016 Gigi Moura R.N., Stop 02:20 11/19/2016 Gigi Moura R.N. Medication Administered: ZITHROMAX [IVPB] (AZITHROMYCIN), Dose: 500 mg IVPB over 60 minute(s), Rate: 255 mL/hr, Dispensed: 255 mL bag, Site: #1 left AC. Medication Ordered: Zithromax IV 500 mg/250 mL (NOW). Start 01:12 11/19/2016 Gigi Morua R.N. Medication Administered: ZITHROMAX [IVPB] (AZITHROMYCIN), Dose: 500 mg IVPB over 60 minute(s), Rate: 255 mL/hr, Dispensed: 250 mL bag, Site: #1 left AC. Medication Ordered: Zithromax IV 500 mg/250 mL (NOW). Given 03:20 11/19/2016 Gigi Moura R.N. Medication Administered: TORADOL [IVP], Dose: 30 mg IVP over 2 minute(s), Site: #1 left AC. Medication Ordered: Toradol IV 30 mg (NOW). Given 03:22 11/19/2016 Gigi Moura R.N. Medication Administered: DILAUDID [IVP] (HYDROMORPHONE HCL PF), Dose: 1 mg IVP over 2 minute(s), Site: #1 left AC. Medication Ordered: Dilaudid IV 1 mg (HIGH ALERT MEDICATION, NOW).
== END 2016-11-19 03:30 | disposition home or self-care (01) ==
LOC: ED SRH 19:52
DX: J15.9 Unspecified bacterial pneumonia (principal); R11.2 Nausea with vomiting, unspecified; F15.93 Other stimulant use, unspecified with withdrawal
CPT/HCPCS: 90100; 95059